=== PATIENT | female | born 1945 | race Caucasian/White ===

== ENCOUNTER → 2017-12-10 | Outpatient (CLI) | payer MEDICARE, OTHER ==
[~2017-12-10] MED LIST: ALBU90OI INH; AMOX1XR PO; ASPI81CH PO; Augmentin 875-1 EACH PO; BUDE6HFA INH; CARV6.25 PO; DILT120 PO; ESOMEPRAZOLE MA40 MG PO; HYDR1TAB94 PO; Imitrex100 MG PO; LEVFLO500 PO; PRED10; PREG150 PO; Pyridium200 MG PO; SOMA350 MG PO; VENL150ER PO; VENL75ER PO
== END ==
LOC: PLD 11:17 → LAB SHORT 11:17
DX: D48.5 Neoplasm of uncertain behavior of skin (principal)
CPT/HCPCS: 88305

== ENCOUNTER → 2018-12-24 | Outpatient (CLI) | payer MEDICARE, OTHER | END | disposition home or self-care (01) | LOC: PLD 11:05 → LAB SHORT 11:05 | DX: D22.5 Melanocytic nevi of trunk (principal) | CPT/HCPCS: 88305 ==

== ENCOUNTER 2019-06-23 14:00 | Emergency (ER) | payer MEDICARE, OTHER ==
[~2019-06-23] VITALS: Ht 154.9 cm; Wt 61.2 kg
[~2019-06-23 14:00] MED LIST changes: -HYDR1TAB94 PO; +Norco 10-325 T1 EACH PO
[2019-06-23 15:01] LABS: BASOPHILS ABSOLUTE AUTO 0.03 K/mm3 (0.00-0.23); BASOPHILS PERCENT AUTO 1 % (0-2); EOSINOPHILS ABSOLUTE AUTO 0.09 K/mm3 (0.00-0.68); EOSINOPHILS PERCENT AUTO 1 % (0-6); Hematocrit 37.2 % (33.0-51.0); Hemoglobin 12.1 g/dL (11.5-16.0); IMMATURE GRAN ABSOLUTE AUTO 0.04 K/mm3 (0.00-0.10); IMMATURE GRAN PERCENT AUTO 1 % (0-1); LYMPHOCYTES ABSOLUTE AUTO 1.58 K/mm3 (0.84-5.20); LYMPHOCYTES PERCENT AUTO 25 % (21-46); MONOCYTES ABSOLUTE AUTO 0.49 K/mm3 (0.16-1.47); MONOCYTES PERCENT AUTO 8 % (4-13); Mean Corpuscular HGB 32.7 pg (26.0-34.0); Mean Corpuscular HGB Conc 32.5 g/dL (31.5-36.5); Mean Corpuscular Volume 101 fL (80-100); Mean Platelet Volume 10.4 fL (9.1-12.4); NEUTROPHILS ABSOLUTE AUTO 4.03 K/mm3 (1.96-9.15); NEUTROPHILS PERCENT AUTO 65 % (41-73); Platelet Count 235 K/mm3 (150-400); RDW Coefficient Variation 14.5 % (11.7-14.2); RDW Standard Deviation 53.4 fL (35.1-46.3); White Blood Cell Count 6.26 K/mm3 (4.00-11.30)
[2019-06-23 15:14] LABS: Magnesium, Blood 2.5 mg/dL (1.6-2.4); Troponin I <0.015 ng/mL (0.000-0.040)
[2019-06-23 15:16] LABS: Alanine Aminotransfer (ALT/SGP 38 U/L (12-78); Albumin, Blood 3.9 g/dL (3.4-5.0); Albumin/Globulin Ratio 1.1 (0.8-1.8); Alk Phos 82 U/L (50-136); Anion Gap 7 mmol/L (6-16); Aspartate Aminotrans (AST/SGOT 28 U/L (12-37); Bilirubin, Total 0.3 mg/dL (0.1-1.0); Blood Urea Nitrogen 20 mg/dL (8-24); Bun/Creatinine Ratio 20.6 (12.0-20.0); CO2, Blood 23 mmol/L (21-32); Calcium, Blood 8.2 mg/dL (8.5-10.1); Chloride, Blood 104 mmol/L (98-108); Creatinine, Blood 0.97 mg/dL (0.40-1.00); Globulin, Blood 3.4 g/dL (2.2-4.0); Glomerular Filtration Rate >60 (60-); Glucose, Blood 106 mg/dL (70-99); Potassium, Blood 4.4 mmol/L (3.5-5.5); Sodium, Blood 134 mmol/L (136-145); Total Protein, Blood 7.3 g/dL (6.4-8.2)
[2019-06-23] MEDS ORDERED: SOMA350 MG PO (15:16)
[2019-06-23 16:20] LABS: International Normalized Ratio 0.96; Prothrombin Time Results 10.2 Sec (9.7-11.5)
== END 2019-06-23 18:58 | disposition short-term general hospital (02) ==
LOC: ER 14:00
PROVIDERS: Emergency Medicine
DX: S06.349A Traumatic hemorrhage of right cerebrum with loss of consciousness of unspecified duration, initial encounter (principal); S02.0XXA Fracture of vault of skull, initial encounter for closed fracture; S42.032A Displaced fracture of lateral end of left clavicle, initial encounter for closed fracture; Z88.7 Allergy status to serum and vaccine; Z88.5 Allergy status to narcotic agent; Z88.8 Allergy status to other drugs, medicaments and biological substances; Z79.899 Other long term (current) drug therapy; Z79.82 Long term (current) use of aspirin; Z79.52 Long term (current) use of systemic steroids; W01.10XA Fall on same level from slipping, tripping and stumbling with subsequent striking against unspecified object, initial encounter
CPT/HCPCS: 36415; 70450; 72125; 73030; 80053; 83735; 84484; 85025; 85610; 85730; 93005; 93010; 96374; 96375; 96376; 99285-25; J1170; J2405

== ENCOUNTER 2019-07-06 10:56 | Emergency (ER) | payer MEDICARE, OTHER ==
[~2019-07-06] VITALS: Ht 154.9 cm; Wt 57.6 kg
[2019-07-06] MEDS ORDERED: ESOMEPRAZOLE MA40 MG PO (11:13)
[2019-07-06] MEDS ORDERED: MELA3 PO (11:15)
[2019-07-06] MEDS ORDERED: ESOM20 PO (11:15)
[2019-07-06] MEDS ORDERED: Carvedilol25 MG PO (11:16)
[2019-07-06] MEDS ORDERED: Transderm-Scop1 EACH TD (11:16)
== END 2019-07-06 11:58 | disposition home or self-care (01) ==
LOC: ER 10:56
DX: M96.840 Postprocedural hematoma of a musculoskeletal structure following a musculoskeletal system procedure (principal); Z88.7 Allergy status to serum and vaccine; Z88.5 Allergy status to narcotic agent; Z88.8 Allergy status to other drugs, medicaments and biological substances; Z79.899 Other long term (current) drug therapy
CPT/HCPCS: 73000; 99283-25

== ENCOUNTER → 2021-08-17 | Outpatient (CLI) | payer MEDICARE, OTHER ==
[~2021-08-17] MED LIST changes: +Carvedilol25 MG PO; +ESOM20 PO; +MELA3 PO; +Transderm-Scop1 EACH TD
[2021-08-17 15:45] LABS: Source, Urine Clean Catch
[2021-08-17 15:56] LABS: Bacteria Mod /hpf; Squamous Epithelial Cells Few /hpf (Few)
[2021-08-17 15:57] LABS: Amorphous Mod (0-Heavy)
[2021-08-17 16:03] LABS: BASOPHILS ABSOLUTE AUTO 0.03 K/mm3 (0.00-0.23); BASOPHILS PERCENT AUTO 1 % (0-2); Hematocrit 39.3 % (33.0-51.0); Hemoglobin 13.3 g/dL (11.5-16.0); LYMPHOCYTES ABSOLUTE AUTO 0.97 K/mm3 (0.84-5.20); LYMPHOCYTES PERCENT AUTO 22 % (21-46); MONOCYTES ABSOLUTE AUTO 0.67 K/mm3 (0.16-1.47); MONOCYTES PERCENT AUTO 15 % (4-13); Mean Corpuscular HGB 32.7 pg (26.0-34.0); Mean Corpuscular HGB Conc 33.8 g/dL (31.5-36.5); Mean Corpuscular Volume 97 fL (80-100); Mean Platelet Volume 10.4 fL (9.1-12.4); Platelet Count 165 K/mm3 (150-400); RDW Coefficient Variation 13.3 % (11.7-14.2); RDW Standard Deviation 47.8 fL (35.1-46.3); Red Blood Cell Count 4.07 M/mm3 (3.80-5.20); White Blood Cell Count 4.51 K/mm3 (4.00-11.30)
[2021-08-17 16:12] LABS: EOSINOPHILS ABSOLUTE AUTO 0.04 K/mm3 (0.00-0.68); EOSINOPHILS PERCENT AUTO 1 % (0-6); IMMATURE GRAN ABSOLUTE AUTO 0.01 K/mm3 (0.00-0.10); IMMATURE GRAN PERCENT AUTO 0 % (0-1); NEUTROPHILS ABSOLUTE AUTO 2.79 K/mm3 (1.96-9.15); NEUTROPHILS PERCENT AUTO 62 % (41-73)
[2021-08-17 16:36] LABS: Anion Gap 12 mmol/L (6-16); Blood Urea Nitrogen 12 mg/dL (8-24); Bun/Creatinine Ratio 14.3 (12.0-20.0); CO2, Blood 25 mmol/L (21-32); Calcium, Blood 8.5 mg/dL (8.5-10.1); Chloride, Blood 100 mmol/L (98-108); Creatinine, Blood 0.84 mg/dL (0.40-1.00); Glomerular Filtration Rate >60 (60-); Glucose, Blood 93 mg/dL (70-99); Potassium, Blood 3.5 mmol/L (3.5-5.5); Sodium, Blood 137 mmol/L (136-145)
[2021-08-17 16:57] LABS: BAND PERCENT MAN 27 % (0-8); BASOPHILS PERCENT MAN 0 % (0-2); EOSINOPHILS PERCENT MAN 0 % (0-6); LYMPHOCYTES ABSOLUTE MAN 1.21 K/mm3 (0.84-5.20); LYMPHOCYTES PERCENT MAN 27 % (21-46); MONOCYTES PERCENT MAN 9 % (4-13); NEUTROPHILS ABSOLUTE MAN 2.88 K/mm3 (1.96-9.15); SEG NEUTROPHILS PERCENT MAN 37 % (41-73); TOTAL CELLS COUNTED 100
[2021-08-19 17:05] LABS: CORONAVIRUS (COVID19) CSH-NRL Negative (Negative)
== END | disposition home or self-care (01) ==
LOC: LAB SHORT 15:43 → LAB 15:43
PROVIDERS: Physician Assistant Medical
DX: N39.0 Urinary tract infection, site not specified (principal); R10.84 Generalized abdominal pain; Z20.822 Contact with and (suspected) exposure to COVID-19
CPT/HCPCS: 80048; 81015; 85025; 87086; U0003

== ENCOUNTER → 2021-08-21 | Outpatient (CLI) | payer MEDICARE, OTHER ==
[2021-08-21 19:51] LABS: Adenovirus F 40/41 Not Detected (NOT DETECT); Astrovirus Not Detected (NOT DETECT); Campylobacter Sp Not Detected (NOT DETECT); Cryptosporidium Not Detected (NOT DETECT); Cyclospora Cayetanensis Not Detected (NOT DETECT); E. Coli O157 Not Detected (NOT DETECT); Entamoeba Histolytica Not Detected (NOT DETECT); Enteroaggregative E. coli-EAEC Not Detected (NOT DETECT); Enteropathogenic E. coli-EPEC Not Detected (NOT DETECT); Enterotoxigenic E. coli-ETEC Not Detected (NOT DETECT); Giardia Lamblia Not Detected (NOT DETECT); Norovirus GI/GII Not Detected (NOT DETECT); Plesiomonas Shigelloides Not Detected (NOT DETECT); Rotavirus A Not Detected (NOT DETECT); Salmonella Sp Detected (NOT DETECT); Sapovirus Not Detected (NOT DETECT); Shiga Toxin-prod E. coli-STEC Not Detected (NOT DETECT); Shigella/Enteroin E. coli-EIEC Not Detected (NOT DETECT); Vibrio Cholerae Not Detected (NOT DETECT); Vibrio Sp Not Detected (NOT DETECT); Yersinia Enterocolitica Not Detected (NOT DETECT)
== END | disposition home or self-care (01) ==
LOC: LAB 15:14 → LAB SHORT 15:14
PROVIDERS: Physician Assistant Medical
DX: R19.7 Diarrhea, unspecified (principal)
CPT/HCPCS: 0097U

== ENCOUNTER → 2022-11-13 | Outpatient (CLI) | payer OTHER | END | disposition home or self-care (01) | LOC: PLD 12:17 → LAB SHORT 12:17 | DX: M20.12 Hallux valgus (acquired), left foot (principal); M20.42 Other hammer toe(s) (acquired), left foot; M20.5X2 Other deformities of toe(s) (acquired), left foot; M79.672 Pain in left foot | CPT/HCPCS: 88305 ==

== ENCOUNTER → 2024-07-11 | Outpatient (CLI) | payer OTHER ==
[2024-07-11 12:06] LABS: Stool Occult Blood Guaiac 1 Neg (Neg)
== END ==
LOC: LAB SHORT 09:46 → LAB 09:46
PROVIDERS: Physician Assistant
DX: D64.9 Anemia, unspecified (principal)
CPT/HCPCS: 82270

== ENCOUNTER 2024-10-15 20:17 | Emergency (ER) | payer OTHER ==
[~2024-10-15] VITALS: Ht 154.9 cm; Wt 63.5 kg
[2024-10-15] MEDS ORDERED: Ondansetron HCl 2 MG / ML 2ML Vial IV ONE (20:45)
[2024-10-15] MEDS ORDERED: Morphine Sulfate 4 MG/1 ML Injection IV ONE (20:45)
[2024-10-15 21:00] VITALS: BP 115/60
[2024-10-15] MEDS ORDERED: HYDROCODONE-AC1 EA10 PO (21:40)
[2024-10-16] MEDS ORDERED: CALC.25 PO (16:29)
[2024-10-16] MEDS ORDERED: PRED5 PO (16:29)
[2024-10-16] MEDS ORDERED: ASPIR 8181 M1 PO (16:29)
[2024-10-16] MEDS ORDERED: CARV25 PO (16:29)
[2024-10-16] MEDS ORDERED: LOSARTAN POTASS25 MG PO (16:30)
[2024-10-16] MEDS ORDERED: VENL75ER PO (16:30)
[2024-10-16] MEDS ORDERED: ABILIFY MYCITE2 M2 PO (16:31)
[2024-10-16] MEDS ORDERED: PREG300 PO (16:31)
[2024-10-16] MEDS ORDERED: Nexium40 MG PO (16:31)
[2024-10-16] MEDS ORDERED: ATOR40TA PO (16:31)
[2024-10-16] MEDS ORDERED: TIZA4 PO (16:32)
[2024-10-16] MEDS ORDERED: HUMIRA(CF)40 MG/0.4 SC (16:44)
== END 2024-10-15 22:15 | disposition home or self-care (01) ==
LOC: ER 20:17
DX: S42.212A Unspecified displaced fracture of surgical neck of left humerus, initial encounter for closed fracture (principal); W18.39XA Other fall on same level, initial encounter; I10 Essential (primary) hypertension; J45.998 Other asthma; M05.79 Rheumatoid arthritis with rheumatoid factor of multiple sites without organ or systems involvement; Z88.7 Allergy status to serum and vaccine; Z88.5 Allergy status to narcotic agent; Z88.8 Allergy status to other drugs, medicaments and biological substances; Z79.899 Other long term (current) drug therapy; Z92.25 Personal history of immunosuppression therapy
CPT/HCPCS: 36415; 73030; 80076; 82565; 85025; 85651; 86140; 96374; 96375; 99284-25; J2270; J2405

== ENCOUNTER 2024-10-16 14:34 | Inpatient (IN) | payer OTHER ==
[2024-10-16] VITALS (17 sets, daily range): BP systolic 81–104; BP diastolic 33–74
[~2024-10-16] VITALS: Ht 154.9 cm; Wt 67.5 kg
[~2024-10-16 14:34] MED LIST changes: +HYDROCODONE-AC1 EA10 PO
[2024-10-16] MEDS ORDERED: Ketamine HCl 100 MG / ML 5ML Vial IV ONE (14:41)
[2024-10-16 14:55] LABS: Base Excess Venous -6.9 mmol/L; Bicarbonate Venous 19.5 mmol/L (24.0-30.0); PCO2 Venous 33.2 mmHg (38-42); pH Blood Venous 7.36 (7.34-7.37)
[2024-10-16 14:56] LABS: Mean Corpuscular HGB 32.8 pg (26.0-34.0); Mean Corpuscular HGB Conc 31.4 g/dL (31.5-36.5); Mean Corpuscular Volume 105 fL (80-100); Platelet Count 144 K/mm3 (150-400); RDW Coefficient Variation 13.5 % (11.7-14.2); RDW Standard Deviation 52.1 fL (35.1-46.3); Red Blood Cell Count 3.35 M/mm3 (3.80-5.20); White Blood Cell Count 3.45 K/mm3 (4.00-11.30)
[2024-10-16] MEDS ORDERED: NS 1,000 ML IV ONE ×2 (14:57→15:20)
[2024-10-16] MEDS ORDERED: NS 1,000 ML IV SCH (15:00)
[2024-10-16 15:05] LABS: Calcium, Ionized (POC) 0.92 mmol/L (1.10-1.46); Chloride (POC) 107 mmol/L (98-108); Creatinine (POC) 1.3 mg/dL (0.6-1.0); Glucose (ISTAT POC) 94 mg/dL (70-99); Hemoglobin (POC) 12.2 g/dL (12.0-16.0); Potassium (POC) 3.5 mmol/L (3.5-5.5); Sodium (POC) 137 mmol/L (135-148); Total CO2 (POC) 20 mmol/L (21-32)
[2024-10-16 15:23] LABS: BAND PERCENT MAN 34 % (0-8); BASOPHILS PERCENT MAN 0 % (0-2); EOSINOPHILS ABSOLUTE MAN 0.06 K/mm3 (0.00-0.68); EOSINOPHILS PERCENT MAN 2 % (0-6); Ethanol (Alcohol), Blood, Med <3 mg/dL; LYMPHOCYTES ABSOLUTE MAN 1.06 K/mm3 (0.84-5.20); LYMPHOCYTES PERCENT MAN 31 % (21-46); METAMYELOCYTE ABSOLUTE MAN 0.06 K/mm3 (0.00-0.00); METAMYELOCYTE PERCENT MAN 2 % (0-0); MONOCYTES ABSOLUTE MAN 0.06 K/mm3 (0.16-1.47); MONOCYTES PERCENT MAN 2 % (4-13); Magnesium, Blood 2.3 mg/dL (1.6-2.4); NEUTROPHILS ABSOLUTE MAN 2.17 K/mm3 (1.96-9.15); SEG NEUTROPHILS PERCENT MAN 29 % (41-73); TOTAL CELLS COUNTED 100
[2024-10-16 15:26] LABS: Alanine Aminotransfer (ALT/SGP 14 U/L (12-78); Albumin, Blood 2.7 g/dL (3.4-5.0); Alk Phos 39 U/L (50-136); Anion Gap 14 mmol/L (3-11); Aspartate Aminotrans (AST/SGOT 15 U/L (12-37); Bilirubin, Total 0.3 mg/dL (0.1-1.0); Blood Urea Nitrogen 35 mg/dL (8-24); CO2, Blood 22 mmol/L (21-32); Calcium, Blood 7.5 mg/dL (8.5-10.1); Chloride, Blood 108 mmol/L (98-108); Creatinine, Blood 1.25 mg/dL (0.40-1.00); Globulin, Blood 2.6 g/dL (2.2-4.0); Glomerular Filtration Rate 44 (60-); Glucose, Blood 100 mg/dL (70-99); Potassium, Blood 3.5 mmol/L (3.5-5.5); Sodium, Blood 140 mmol/L (136-145); Total Protein, Blood 5.3 g/dL (6.4-8.2)
[2024-10-16 15:31] LABS: U Opiates Screen DETECTED
[2024-10-16 15:32] LABS: U Amphetamine Screen Not Detected; U Barbituate Screen Not Detected; U Benzodiazapine Screen Not Detected; U Buprenorphine Screen Not Detected; U Cannabinoids Screen Not Detected; U Cocaine Screen Not Detected; U Methadone Screen Not Detected; U Methamphetamine Screen Not Detected; U Oxycodone Screen Not Detected; U Phencyclidine Screen Not Detected
[2024-10-16] MEDS ORDERED: ASPIR 8181 M1 PO (16:29)
[2024-10-16] MEDS ORDERED: CALC.25 PO (16:29)
[2024-10-16] MEDS ORDERED: CARV25 PO (16:29)
[2024-10-16] MEDS ORDERED: PRED5 PO (16:29)
[2024-10-16] MEDS ORDERED: LOSARTAN POTASS25 MG PO (16:30)
[2024-10-16] MEDS ORDERED: FentaNYL Citrate 50 MCG/ML 2 ML Injection IV PRN (16:30)
[2024-10-16] MEDS ORDERED: VENL75ER PO (16:30)
[2024-10-16] MEDS ORDERED: ABILIFY MYCITE2 M2 PO (16:31)
[2024-10-16] MEDS ORDERED: ATOR40TA PO (16:31)
[2024-10-16] MEDS ORDERED: Nexium40 MG PO (16:31)
[2024-10-16] MEDS ORDERED: PREG300 PO (16:31)
[2024-10-16] MEDS ORDERED: TIZA4 PO (16:32)
[2024-10-16] MEDS ORDERED: FLU VACC TS2024-25(6MOS UP)/PF 45 MCG/0.5 ML SYRINGE IM SCH (16:40)
[2024-10-16] MEDS ORDERED: Ondansetron HCl 2 MG / ML 2ML Vial IV PRN (16:40)
[2024-10-16] MEDS ORDERED: Cetylpyridinium Chloride 1 EA MISC MT SCH (16:40)
[2024-10-16] MEDS ORDERED: HUMIRA(CF)40 MG/0.4 SC (16:44)
[2024-10-16] MEDS ORDERED: Midazolam HCL 100 MG in NS 80 ML IV PRN (16:50)
[2024-10-16] MEDS ORDERED: Enoxaparin 40 MG/0.4 ML SYR SC SCH (17:00)
[2024-10-16] MEDS ORDERED: Ampicillin Sod/Sulbactam Sod 3 GM in NS 100 ML IV SCH (17:00)
[2024-10-16 17:39] LABS: Influenza A, PCR NEGATIVE (NEGATIVE); Influenza B, PCR NEGATIVE (NEGATIVE); Resp Syncytial Virus, PCR NEGATIVE (NEGATIVE); SARS-Cov-2 (COVID-19) PCR, MMC NEGATIVE (NEGATIVE)
[2024-10-16] MEDS ORDERED: CALCIUM GLUC IN NACL, ISO-OSM 50 ML IV ONE (18:30)
[2024-10-16] MEDS ORDERED: Potassium Chloride 40 MEQ in NS 250 ML IV SCH (19:30)
[2024-10-16 19:40] LABS: Base Excess Venous -6.2 mmol/L; Bicarbonate Venous 18.8 mmol/L (24.0-30.0); PCO2 Venous 48.3 mmHg (38-42); pH Blood Venous 7.25 (7.34-7.37)
[2024-10-16] MEDS ORDERED: propofoL 100 ML IV SCH (19:40)
[2024-10-16 20:07] LABS: PCO2 Arterial 44.5 mmHg (35-45); PO2 Arterial 57.6 mmHg (80-100)
[2024-10-16 20:08] LABS: pH Blood Arterial 7.27 (7.35-7.45)
[2024-10-16] MEDS ORDERED: NS 500 ML IV ONE (20:30)
[2024-10-16] MEDS ORDERED: NS 500 ML IV SCH (20:30)
[2024-10-16] MEDS ORDERED: Vancomycin HCL 1,500 MG in NS 250 ML IV ONE (21:00)
[2024-10-16] MEDS ORDERED: Rocuronium Bromide 10 MG/ML 5ML Injection IV ONE (21:30)
[2024-10-16] MEDS ORDERED: Cisatracurium Besylate 100 MG in NS 50 ML IV SCH (22:00)
[2024-10-16] MEDS ORDERED: Acetaminophen 160MG / 5ML 10.15 UDC PT PRN (22:35)
[2024-10-16] MEDS ORDERED: fentaNYL citrate 1,000 MCG in NS 80 ML IV SCH (22:35)
[2024-10-16 22:39] LABS: Base Excess Venous -7.2 mmol/L; Bicarbonate Venous 18.4 mmol/L (24.0-30.0); pH Blood Venous 7.23 (7.34-7.37)
[2024-10-16] MEDS ORDERED: Lactated Ringer's 500 ML IV SCH (23:15)
[2024-10-16] MEDS ORDERED: Vasopressin 20 UNITS in NS 100 ML IV SCH (23:20)
[2024-10-17] VITALS (73 sets, daily range): BP systolic 61–149; BP diastolic 26–123
[2024-10-17] MEDS ORDERED: Hydrogen Peroxide 1.5 % Solution MT SCH
[2024-10-17] MEDS ORDERED: Artificial Tear Opth Oint 3.5 GM BOTHEYES PRN (01:30)
[2024-10-17] MEDS ORDERED: Phenylephrine HCl in 0.9% NaCl 250 ML IV SCH (02:40)
[2024-10-17 03:24] LABS: Base Excess Venous -10.9 mmol/L; Bicarbonate Venous 16.3 mmol/L (24.0-30.0); PCO2 Venous 33.9 mmHg (38-42); pH Blood Venous 7.28 (7.34-7.37)
[2024-10-17 03:30] LABS: Hematocrit 35.6 % (33.0-51.0); Mean Corpuscular HGB 32.8 pg (26.0-34.0); Mean Corpuscular HGB Conc 30.9 g/dL (31.5-36.5); Mean Corpuscular Volume 106 fL (80-100); Mean Platelet Volume 10.3 fL (9.1-12.4); NRBC ABSOLUTE 0.02 K/mm3 (0.00-0.02); NRBC Auto 0.7 /100 WBC (0.0-0.2); Platelet Count 169 K/mm3 (150-400); RDW Coefficient Variation 13.5 % (11.7-14.2); RDW Standard Deviation 52.8 fL (35.1-46.3); Red Blood Cell Count 3.35 M/mm3 (3.80-5.20); White Blood Cell Count 3.07 K/mm3 (4.00-11.30)
[2024-10-17 03:49] LABS: Magnesium, Blood 1.8 mg/dL (1.6-2.4)
[2024-10-17 03:50] LABS: Albumin, Blood 2.1 g/dL (3.4-5.0); Albumin/Globulin Ratio 0.9 (0.8-1.8); Bilirubin, Total 0.2 mg/dL (0.1-1.0); Bun/Creatinine Ratio 27.3 (12.0-20.0); Creatinine, Blood 1.1 mg/dL (0.40-1.00); Globulin, Blood 2.4 g/dL (2.2-4.0); Phosphorus, Blood 2.5 mg/dL (2.5-4.9); Potassium, Blood 3.5 mmol/L (3.5-5.5); Total Protein, Blood 4.5 g/dL (6.4-8.2)
[2024-10-17 04:08] LABS: BAND PERCENT MAN 33 % (0-8); BASOPHILS ABSOLUTE MAN 0.03 K/mm3 (0.00-0.23); BASOPHILS PERCENT MAN 1 % (0-2); EOSINOPHILS ABSOLUTE MAN 0.03 K/mm3 (0.00-0.68); EOSINOPHILS PERCENT MAN 1 % (0-6); LYMPHOCYTES ABSOLUTE MAN 0.39 K/mm3 (0.84-5.20); LYMPHOCYTES PERCENT MAN 13 % (21-46); METAMYELOCYTE ABSOLUTE MAN 0.36 K/mm3 (0.00-0.00); METAMYELOCYTE PERCENT MAN 12 % (0-0); MONOCYTES ABSOLUTE MAN 0.09 K/mm3 (0.16-1.47); MONOCYTES PERCENT MAN 3 % (4-13); MYELOCYTE ABSOLUTE MAN 0.09 K/mm3 (0.00-0.00); MYELOCYTE PERCENT MAN 3 % (0-0); NEUTROPHILS ABSOLUTE MAN 2.05 K/mm3 (1.96-9.15); SEG NEUTROPHILS PERCENT MAN 34 % (41-73); TOTAL CELLS COUNTED 100
--- NOTE | 2024-10-17 05:39 | NUR ---
SHIFT SUMMARY: PT IS INTUBATED AND IN PRONED POSITION. THROUGHOUT THE SHIFT WE HAD ISSUES MAINTAINING AN ADEQUATED BLOOD PRESSURE DESPITE MULTIPLE PRESSORS AND FLUID RESUCITATION. SHE HAD ISSUES WITH OXYGENATION PRIOR TO PRONING WELL. PT IS PARALYZED AND SEDATED WITH PROPOFOL AND VERSED AND ON A FENTANYL GTT WITH RIS MONITORING. SHE HAS A FRACTURED LEFT HUMERUS THAT WAS IN A SLING UPON ARRIVAL. BRUISING OVER THE AREA NOTED. SHE HAS A SQUIRES CATHETER IN PLACE DRAINING TO GRAVITY WITH ADEQUATE URINE OUTPUT. PT HAS A CENTRAL LINE AND 2 PERIPHERAL LINE. ART LINE WAS ATTEMPTED AT RADIAL AND FEMORAL SITE AT THE BEGINNING OF SHIFT WITHOUT SUCCESS. SOME BRUISING TO THOSE SITES. HER CAREGIVER HAS BEEN AT BEDSIDE THROUGHOUT SHIFT PATIENT'S WENT HOME ON HOSPICE YESTERDAY, CAREGIVER IS THE MAIN POINT OF CONTACT FOR THE PATIENT AT THIS TIME.
[2024-10-17] MEDS ORDERED: Pantoprazole Sodium 40 MG Injection IV SCH (06:00)
[2024-10-17] MEDS ORDERED: Potassium Chloride 20 MEQ/15 ML UDC PO ONE (08:30)
[2024-10-17] MEDS ORDERED: Meropenem 2,000 MG in NS 250 ML IV SCH (11:00)
[2024-10-17] MEDS ORDERED: Magnesium Hydroxide Conc 10 ML UDC PT PRN (11:45)
[2024-10-17] MEDS ORDERED: Bisacodyl 10 MG Supp PR PRN (11:45)
[2024-10-17] MEDS ORDERED: Docusate Sodium Liquid 100 MG UDC PT PRN (11:45)
[2024-10-17] MEDS ORDERED: Ampicillin Sod/Sulbactam Sod 3 GM in NS 100 ML IV SCH (12:00)
--- NOTE | 2024-10-17 15:05 | NUR ---
POLST FORM OBTAINED FROM [facility]. PT LISTED CPR, FULL TREATMENT-NO FEEDING TUBE UNLESS SPECIFIED BY PATIENT. COPY SENT TO POLST REGISTRY AND PLACED ON CHART.
--- NOTE | 2024-10-17 16:58 | NUR ---
INITIAL VISIT: MET WITH FRIEND HUGO AT BEDSIDE. PT IS ON VENTILATOR AND UNRESPONSIVE. HUGO REPORTED SHE LIVES ON PROPERTY AND WAS ASSISTING KAREEM WITH THE CARE OF HER WHO WAS RECENTLY PLACED ON HOSPICE SERVICES FOR DEMENTIA. WILLIAM HAD TRIPPED OVER SPOUSES WHEELCHAIR WHEEL THAT WAS STICKING OUT AT DINNER TABLE AND FELL AND BROKE HER ARM. KAREEM CAME TO ER AND WAS SENT HOME WITH PAIN MEDICATION. HUGO REPORTED SHE WAS UP IN THE MIDDLE OF THE NIGHT AND GOT A PAIN PILL THEN WENT BACK TO BED AND WAS UP AGAIN AROUND 10 AM YESTERDAY. SHE TOOK ANOTHER PAIN PILL AND ATE SOME TOAST BUT ENDED UP VOMITING UP THE TOAST. SHE WENT TO CHECK ON HER LATER IN THE DAY AND AND FOUND PT IN BED "GURGLING". WHEN MARBLE FINISHER ARRIVED TO VISIT SPOUSE OF PATIENT HE TOLD HUGO TO CALL 911. HUGO REPORTS PT HAS STEP SON JOSE RIZO WHO IS CURRENTLY WITH HIS DAD TAKING CARE OF HIM. SPOUSE PIPPA IS UNABLE TO MAKE DECISIONS DUE TO HIS ADVANCED DEMENTIA. ACCORDING TO HUGO PT HAS NO OTHER FAMILY WHO CAN MAKE DECISIONS FOR HER. HUGO STATED KAREEM WAS GOING TO MAKE HER POA SINCE HER WENT ON HOSPICE SERVICES. THEY HAD MEETING SET UP TODAY WITH LAW REPORTER TO SET UP POA. ACCORDING TO HUGO KAREEM HAD ALSO DESIGNATED A FRIEND NAMED TONY IN HER WILL TO INHERIT HER PROPERTY. HUGO GIVEN EMOTIONAL SUPPORT. ADVISED PALLIATIVE CARE WILL BE CHECKING ON PATIENT THROUGHOUT HER STAY AND TO CALL IF SHE HAS ANY QUESTIONS OR NEEDS. SPOKE TO SAMUEL IN CARE MANAGEMENT OF CONCERNS PT DOES NOT HAVE FAMILY MEMBER WHO CAN MAKE MEDICAL DECISIONS FOR PATIENT AT THIS TIME. UPDATED HER ON ABOVE SITUATION. SAMUEL DID ACCESS A POLST WHICH WAS SENT OVER VIA FAX. PLACED ON CHART.
--- NOTE | 2024-10-17 17:26 | NUR ---
SHIFT SUMMARY PT REMAINS INTUBATED. PT PRONE UNTIL 1400, THEN PLACED SUPINE. PT TOLERATED WELL. NIMBEX AND ALL SEDATION WEANED OFF THIS AFTERNOON. DR ENGLAND CHANGED VENT SETTINGS TO AC/VC 24, TV 350, PEEP 13, FIO2 45%. PT REMAINS NONRESPONSIVE TO NOXIOUS STIMULI. PT OCCASIONALLY CHEWS ON ETT. CENTRAL LINE TO RIJ C/D/I. LEVOPHED TITRATED DOWN THROUGHOUT THIS SHIFT. VASOPRESSIN INFUSING. SEE FLOWSHEET FOR TITRATIONS. OGT IN PLACE WITH TF STARTED AT 10 ML/HR GOAL RATE. SQUIRES TEMP PROBE REMAINS IN PLACE WITH YELLOW URINE OUTPUT NOTED. PT WITH MULTIPLE SOFT BM'S THIS SHIFT. VITAL SIGNS REMAINED STABLE. MULTIPLE FAMILY MEMBERS AT BEDSIDE THROUGHOUT THE SHIFT. SKIN CONDITION REMAINS THE SAME. SKIN TEARS TO CHEECKS BETTER VISUALIZED AND PHOTOGRAPHED AFTER PT SUPINATED. WILL CONTINUE TO MONITOR AND REPORT OFF TO ONCOMING RN.
[2024-10-17 17:29] LABS: Base Excess Venous -9.9 mmol/L; Bicarbonate Venous 17.1 mmol/L (24.0-30.0); PCO2 Venous 36.5 mmHg (38-42); pH Blood Venous 7.27 (7.34-7.37)
[2024-10-17] MEDS ORDERED: Vancomycin HCL 1,000 MG in NS 250 ML IV SCH (21:00)
[2024-10-17] MEDS ORDERED: Lactobacil 2-S.Thermo-Bifido 1 1 Cap PT SCH (21:00)
[2024-10-18] VITALS (100 sets, daily range): BP systolic 75–172; BP diastolic 24–151
[2024-10-18 03:41] LABS: Hematocrit 35.5 % (33.0-51.0); Hemoglobin 11.5 g/dL (11.5-16.0); Mean Corpuscular HGB 32.8 pg (26.0-34.0); Mean Corpuscular HGB Conc 32.4 g/dL (31.5-36.5); Mean Platelet Volume 10.8 fL (9.1-12.4); Platelet Count 118 K/mm3 (150-400); RDW Coefficient Variation 13.8 % (11.7-14.2); RDW Standard Deviation 51.2 fL (35.1-46.3); Red Blood Cell Count 3.51 M/mm3 (3.80-5.20); White Blood Cell Count 4.74 K/mm3 (4.00-11.30)
[2024-10-18 03:48] LABS: Mean Corpuscular Volume 101 fL (80-100)
[2024-10-18 04:00] LABS: BAND PERCENT MAN 28 % (0-8); BASOPHILS PERCENT MAN 0 % (0-2); Bun/Creatinine Ratio 23.6 (12.0-20.0); Calcium, Blood 7.7 mg/dL (8.5-10.1); Creatinine, Blood 0.93 mg/dL (0.40-1.00); EOSINOPHILS ABSOLUTE MAN 0.14 K/mm3 (0.00-0.68); EOSINOPHILS PERCENT MAN 3 % (0-6); LYMPHOCYTES ABSOLUTE MAN 0.61 K/mm3 (0.84-5.20); LYMPHOCYTES PERCENT MAN 13 % (21-46); METAMYELOCYTE ABSOLUTE MAN 0.09 K/mm3 (0.00-0.00); METAMYELOCYTE PERCENT MAN 2 % (0-0); MONOCYTES ABSOLUTE MAN 0.14 K/mm3 (0.16-1.47); MONOCYTES PERCENT MAN 3 % (4-13); MYELOCYTE ABSOLUTE MAN 0.04 K/mm3 (0.00-0.00); MYELOCYTE PERCENT MAN 1 % (0-0); Magnesium, Blood 1.9 mg/dL (1.6-2.4); NEUTROPHILS ABSOLUTE MAN 3.69 K/mm3 (1.96-9.15); Phosphorus, Blood 2.7 mg/dL (2.5-4.9); Potassium, Blood 3.8 mmol/L (3.5-5.5); SEG NEUTROPHILS PERCENT MAN 50 % (41-73); TOTAL CELLS COUNTED 100
[2024-10-18] MEDS ORDERED: Potassium Chl 20MEQ/Water100ML 100 ML IV SCH (05:00)
[2024-10-18] MEDS ORDERED: Mag Sulfate 1 GM/D5% 100ML 100 ML IV ONE (05:00)
[2024-10-18] MEDS ORDERED: Mag Sulfate 1 GM/D5% 100ML 100 ML IV STA (05:09)
[2024-10-18] MEDS ORDERED: Potassium Chloride 40 MEQ in NS 250 ML IV ONE (05:15)
[2024-10-18] MEDS ORDERED: CALCIUM GLUC IN NACL, ISO-OSM 50 ML IV ONE ×2 (06:00→06:10)
--- NOTE | 2024-10-18 06:40 | NUR ---
SHIFT SUMMARY NO ACUTE EVENTS, TMAX 100.1F, LEVOPHED TITRATED PER EMAR, VASOPRESSIN AT 0.04 UNITS/MIN, PROPOFOL TITRATED FOR RASS -2/-3, FENTANYL AND VERSED REMAINS ON STANDBY, PT HAD X4 INCONTINENT STOOLS THIS SHIFT, REMAINS INTUBATED AND SEDATED, FIO2 45%, HOB UP 45 DEGREES, SIDE RAILS UP X2, [place]AILASH WRIST RESTRAINTS IN PLACE
--- NOTE | 2024-10-18 07:00 | NUR ---
ASSUMPTION OF CARE PT RECEIVING PROPOFOL 20MCG/KG/MIN, LEVOPHED 12MCG/HR, AND VASOPRESSIN 0.04UNITS/KG/HR. SHE IS INTUBATED WITH VENT SETTINGS AC/VC 24/350/12/45%. RASS -3. VHP INFUSING VIA OGT. SINUS ON MONITOR WITH RATE IN 90S. TEMP SQUIRES PATENT AND DRAINING TO GRAVITY. CAREGIVER BEATRIZ AT BEDSIDE.
[2024-10-18] MEDS ORDERED: HYDROCORTISONE SOD SUCCINATE IV SCH (11:15)
[2024-10-18] MEDS ORDERED: NS IV SCH (11:15)
[2024-10-18] MEDS ORDERED: Hydrocortisone Sod Succinate 250 MG Vial IV SCH (12:00)
--- NOTE | 2024-10-18 16:15 | NUR ---
PALLIATIVE CARE VISIT: PT IS STILL ON VENTILATOR, NON RESPONSIVE. APPEARS TO BE IN NO APPARENT DISTRESS DURING VISIT. FRIEND HUGO IS PRESENT. GAVE HUGO ENCOURAGEMENT AND EMOTIONAL SUPPORT. ANSWERED HER QUESTIONS. HUGO REPORTS PROMOTIONAL REPRESENTATIVE FOR PATIENTS SPOUSE IS COMING IN DAILY TO CHECK NEEDS. STEP SON OF PATIENT CONTINUES TO BE IN HOME CARING FOR HIS FATHER. HUGO DENIES ANY CONCERNS REGARDING HIS CARE. HUGO ENCOURAGED TO SELF CARE SHE STATES SHE IS SLEEPING AT HOSPITAL TO BE WITH KAREEM. SHE STATED SHE FELT DEHYDRATED YESTERDAY BUT NOW SHE KNOWS WHERE TO GET FOOD AND DRINKS. NATANAEL HILL REPORTED SHE WILL LEAVE FOR A FEW HOURS TONIGHT TO GO HOME AND SHOWER AND GO ON A OUTING WITH FRIENDS SHE ALREADY HAD PLANNED. ROUTE AIDE SAMUEL RESEARCHED NEXT OF KIN YESTERDAY AND NONE HAVE BEEN ABLE TO BE LOCATED AT THIS TIME.
--- NOTE | 2024-10-18 17:32 | NUR ---
SHIFT SUMMARY PT RECEIVING PROPOFOL 25MCG/KG/MIN, LEVOPHED 8MCG/MIN, VASOPRESSIN 0.04UNITS/KG/HR AND FENTANYL 25MCG/HR. SHE REMAINS INTUBATED WITH VENT SETTINGS AC/VC 24/350/10/45%. RASS -3. SINUS ON MONITOR WITH RATE IN 70S-90S. TUBE FEEDING INCREASED TO GOAL 25ML/HR. PT HAS HAD MULTIPLE BMS THIS SHIFT. TEMP SQUIRES PATENT AND DRAINING TO GRAVITY. CURRENT TEMP 99.7.
--- NOTE | 2024-10-18 19:40 | NUR ---
update assumed care of pt at 1900, at 1915 pt more alert, raising arm and pulling on restraints, moving ble up and down, noted pt appears to be gasping for air with abd accessory muscle use, spo2 decreased to 77%, RT called to room, fio2 increased to 100%, oral and inline suction performed with no secretions noted, propofol increased from 25 mcg/kg/min to 50 mcg/kg/min and fentanyl increased from 25 mcg/hr to 50 mcg/hr, vent changes made by RT FiO2 increased from 30% to 35%, tv increased from 300 to 350. spo2 increased to 98-100% and noted decreased respiratory effort and no longer gasping, no longer restless or pulling on restraints. rass -3 at this time
[2024-10-18] MEDS ORDERED: CefTRIAXone Sodium 1,000 MG in NS 100 ML IV SCH (21:00)
[2024-10-19] VITALS (95 sets, daily range): BP systolic 69–158; BP diastolic 42–97
[2024-10-19 03:40] LABS: Hematocrit 27.8 % (33.0-51.0); Hemoglobin 9.1 g/dL (11.5-16.0); Mean Corpuscular HGB Conc 32.7 g/dL (31.5-36.5); Mean Corpuscular Volume 101 fL (80-100); Mean Platelet Volume 11.5 fL (9.1-12.4); NRBC ABSOLUTE 0.02 K/mm3 (0.00-0.02); NRBC Auto 0.4 /100 WBC (0.0-0.2); Platelet Count 84 K/mm3 (150-400); RDW Coefficient Variation 13.8 % (11.7-14.2); Red Blood Cell Count 2.76 M/mm3 (3.80-5.20); White Blood Cell Count 5.42 K/mm3 (4.00-11.30)
[2024-10-19 04:00] LABS: Albumin, Blood 1.9 g/dL (3.4-5.0); Anion Gap 12 mmol/L (3-11); BAND PERCENT MAN 18 % (0-8); BASOPHILS PERCENT MAN 0 % (0-2); Blood Urea Nitrogen 14 mg/dL (8-24); Bun/Creatinine Ratio 21.1 (12.0-20.0); CO2, Blood 20 mmol/L (21-32); Calcium, Blood 7.8 mg/dL (8.5-10.1); Chloride, Blood 115 mmol/L (98-108); Creatinine, Blood 0.66 mg/dL (0.40-1.00); EOSINOPHILS PERCENT MAN 0 % (0-6); Glomerular Filtration Rate 90 (60-); Glucose, Blood 136 mg/dL (70-99); LYMPHOCYTES ABSOLUTE MAN 0.16 K/mm3 (0.84-5.20); LYMPHOCYTES PERCENT MAN 3 % (21-46); METAMYELOCYTE ABSOLUTE MAN 0.05 K/mm3 (0.00-0.00); METAMYELOCYTE PERCENT MAN 1 % (0-0); MONOCYTES ABSOLUTE MAN 0.16 K/mm3 (0.16-1.47); MONOCYTES PERCENT MAN 3 % (4-13); MYELOCYTE ABSOLUTE MAN 0.05 K/mm3 (0.00-0.00); MYELOCYTE PERCENT MAN 1 % (0-0); NEUTROPHILS ABSOLUTE MAN 4.98 K/mm3 (1.96-9.15); Phosphorus, Blood 1.8 mg/dL (2.5-4.9); Potassium, Blood 3.6 mmol/L (3.5-5.5); SEG NEUTROPHILS PERCENT MAN 74 % (41-73); Sodium, Blood 143 mmol/L (136-145); TOTAL CELLS COUNTED 100
--- NOTE | 2024-10-19 07:00 | NUR ---
ASSUMPTION OF CARE PT RECEIVING PROPOFOL 30MCG/KG/MIN, LEVOPHED 2 MCG/MIN, VASOPRESSIN 0.04UNITS/KG/HR, AND FENTANYL 50MCG/HR. SHE REMAINS INTUBATED WITH VENT SETTINGS AC/VC 28/350/10/35%. RASS -3. SINUS ON MONITOR WITH RATE IN 60S. TUBE FEEDING INFUSING AT GOAL RATE VIA OGT. TEMP SQUIRES PATENT AND DRAINING TO GRAVITY. CAREGIVER NATANAEL HILL AT BEDSIDE.
[2024-10-19] MEDS ORDERED: Multivitamins-Minerals Liquid 15 ML Oral Syringe PT SCH (09:00)
[2024-10-19] MEDS ORDERED: Sodium Phosphate 20 MM in Dextrose 5% 500 ML IV STA (09:43)
[2024-10-19] MEDS ORDERED: dexmedeTOMIDine 100 ML IV SCH (12:00)
--- NOTE | 2024-10-19 18:42 | NUR ---
SHIFT SUMMARY PT RECEIVING PROPOFOL 15MCG/KG/MIN, FENTANYL 25MCG/HR, PRECEDEX 1.0MCG/KG/HR, LEVOPHED 4MCG/MIN. SHE REMAINS INTUBATED WITH VENT SETTINGS AC/VC 24/340/10/45%. ATTEMPTED TO TITRATE SEDATION DOWN FOR SEDATION VACATION. PT BECAME TACHYPNEIC AND TACHYCARDIC. STARTED PRECEDEX THIS SHIFT. SINUS ON MONITOR WITH RATE IN 60S. TUBE FEEDING INFUSING AT GOAL RATE. PT HAD MULTIPLE BMS THIS SHIFT. TEMP SQUIRES PATENT AND DRAINING TO GRAVITY.
[2024-10-19 21:20] LABS: C DIFFICILE DNA NEGATIVE (Negative)
[2024-10-20] VITALS (78 sets, daily range): BP systolic 78–147; BP diastolic 47–95
[2024-10-20 03:52] LABS: Hematocrit 27.2 % (33.0-51.0); Hemoglobin 9.3 g/dL (11.5-16.0); Mean Corpuscular HGB 32.9 pg (26.0-34.0); Mean Corpuscular HGB Conc 34.2 g/dL (31.5-36.5); Mean Platelet Volume 11.1 fL (9.1-12.4); NRBC ABSOLUTE 0.05 K/mm3 (0.00-0.02); NRBC Auto 0.6 /100 WBC (0.0-0.2); Platelet Count 111 K/mm3 (150-400); RDW Coefficient Variation 13.6 % (11.7-14.2); RDW Standard Deviation 48.3 fL (35.1-46.3); Red Blood Cell Count 2.83 M/mm3 (3.80-5.20)
[2024-10-20 03:56] LABS: Mean Corpuscular Volume 96 fL (80-100)
[2024-10-20 04:09] LABS: Anion Gap 11 mmol/L (3-11); Blood Urea Nitrogen 17 mg/dL (8-24); Bun/Creatinine Ratio 26.6 (12.0-20.0); CO2, Blood 22 mmol/L (21-32); Calcium, Blood 7.9 mg/dL (8.5-10.1); Chloride, Blood 115 mmol/L (98-108); Creatinine, Blood 0.64 mg/dL (0.40-1.00); Glomerular Filtration Rate 91 (60-); Glucose, Blood 133 mg/dL (70-99); Phosphorus, Blood 1.3 mg/dL (2.5-4.9); Sodium, Blood 145 mmol/L (136-145)
[2024-10-20 04:48] LABS: BAND PERCENT MAN 21 % (0-8); BASOPHILS PERCENT MAN 0 % (0-2); EOSINOPHILS PERCENT MAN 0 % (0-6); LYMPHOCYTES ABSOLUTE MAN 0.17 K/mm3 (0.84-5.20); LYMPHOCYTES PERCENT MAN 2 % (21-46); MONOCYTES ABSOLUTE MAN 0.52 K/mm3 (0.16-1.47); MONOCYTES PERCENT MAN 6 % (4-13); NEUTROPHILS ABSOLUTE MAN 8.09 K/mm3 (1.96-9.15); SEG NEUTROPHILS PERCENT MAN 71 % (41-73); TOTAL CELLS COUNTED 100
[2024-10-20] MEDS ORDERED: Potassium Phosphate Dibasic 30 MM in Dextrose 5% 500 ML IV STA (05:15)
[2024-10-20] MEDS ORDERED: Potassium Phosphate Dibasic 30 MM IV ONE (05:15)
--- NOTE | 2024-10-20 05:37 | NUR ---
SHIFT SUMMARY PATIENT INTUBATED AND SEDATED. CAREGIVER NATANAEL HILL AT BEDSIDE THROUGH NIGHT. ET TUBE 7.5 22CM AT [facility]. VENT SETTINGS AC/VC 24/340/10/45%. PROPOFOL RUNNING @ 15, LEVO RUNNING @ 4, FENTANYL RUNNING 25MCG, AND PRECEDEX RUNNING @ 1. PATIENT HAS A RIJ AND A RIGHT WRIST 20G IV. PATIENT HAS SQUIRES WITH TEMP AND DRAINING TO GRAVITY. WRIST RESTRAINTS ON BILATERAL. TUBE FEEDING AT GOAL OF 25ML WITH A 30ML FLUSH Q4HRS. CALL LIGHT WITHIN REACH AND CAREGIVER KNOWS WHERE IT IS ALSO.
--- NOTE | 2024-10-20 07:15 | NUR ---
ASSUMPTION OF CARE: ASSUMED CARE OF PATIENT. PATIENT RESTING IN BED WITH HER CAREGIVER AT THE BEDSIDE. TUBE FEED INFUSING AT GOAL OF 25MLS/HR. PRECEDEX GTT AT 1 MCG/KG/HR. PROPOFOL AT 20 MCG/KG/HR. FENTANYL AT 25 MCG/HR. HYDROCORTISONE GTT INFUSING PER ORDERS. KPHOS REPLACEMENT INFUSING. SQUIRES IN PLACE AND DRAINING FREELY CLEAR YELLOW URINE. VENT SETTINGS AC/VC 24/340/10/40%. SPO2 >94%. HR IN THE 80S. MAPS >65. LEVOPHED AT 2 MCG/MIN.
--- NOTE | 2024-10-20 08:46 | NUR ---
Provider notification - Dr. Torres -- pt exhibiting increased work of breathing, decreased tidal volumes, stacking breaths, and pulling against restraints this AM per primary RN. Propofol titrated, fentanyl push administered. Pt appears more comfortable but breath stacking continues with every third breath receiving tidal volume 0. Pt currently on ACVC 40%, 10+. RT at bedside, changed settings to PS per Dr. Torres to achieve previously set tidal volume goal. PS 5, 40%, 10+, RR 17, even, non-labored respirations.
[2024-10-20] MEDS ORDERED: Potassium Chloride 20 MEQ/15 ML UDC PT ONE (11:00)
--- NOTE | 2024-10-20 11:25 | NUR ---
SEDATION INTERRUPTION: SEDATION STOPPED AT 11:07. PATIENT BECAME INCREASINGLY AGITATED: PULLING AT RESTRAINTS, LIFTING SHOULDERS OFF OF THE BED, AND SHAKING HEAD BACK AND FORTH. PATIENT DID NOT RESPOND TO REDIRECTION, REASSURANCE OR COMMANDS. PATIENT MOVING ALL 4 LIMBS INDEPENDENTLY. PATIENT DID NOT WITHDRAW OR LOCALIZE TO PAINFUL STIMULI (NAIL BED PRESSURE OR TRAPEZIUS SQUEEZE). CAREGIVER AND STEP SON AT BEDSIDE DURING THIS PROCESS. SEDATION INTERRUPTION STOPPED AT 11:25 DUE TO INCREASING AGITATION.
[2024-10-20] MEDS ORDERED: Tranexamic Acid 1000 MG/10 ML 10ML Vial (SDV) INH SCH (13:00)
--- NOTE | 2024-10-20 13:37 | NUR ---
SPONTANEOUS BREATHING TRIAL: LATE ENTRY: SBT STARTED AT 0848 THIS MORNING. PATIENT HAD BEEN DOUBLE STACKING. DONYA RT NOTIFIED AND AT BEDSIDE. PER DR. JERNIGAN ORDERS, PATIENT PLACED ON SPONTANEOUS WITH PS OF 5, FIO2 40%. PATIENT TOLERATED WELL WITH RR 18-24. VOLUMES IN THE 400-500S. SPOW >94%. NEAR THE END OF THE TRIAL, RR INCREASED TO THE LOW 30S AND PATIENT APPEARED TO HAVE AN INCREASED WORK OF BREATHING. TRIAL STOPPED AT 1337. CAREGIVER AT BEDSIDE THROUGHOUT.
[2024-10-20] MEDS ORDERED: FentaNYL Citrate 50 MCG/ML 2 ML Injection IV PRN (13:40)
[2024-10-20] MEDS ORDERED: Banana Flakes/Tos 1 EA Powder Pack PT SCH (14:00)
--- NOTE | 2024-10-20 18:44 | NUR ---
SHIFT SUMMARY: NEURO: PATIENT DID NOT FOLLOW DIRECTIONS OR RESPOND VERBAL OR PAINFUL STIMULI DURING THE SHIFT, EVEN DURING SEDATION INTERRUPTION (SEE NURSE'S NOTE). DURING SEDATION INTERRUPTION, PATIENT MOVING ALL FOUR LIMBS INDEPENDENTLY. PRECEDEX AT 1 MCG/KG/HR AND PROPOFOL AT 20 MCG/KG/MIN AT THE END OF SHIFT. RESPIRATORY: DURING THE MORNING, PATIENT INCREASINGLY INTOLERANT OF THE VENT, RESULTING IN DOUBLE STACKING. THIS WAS NOT ALLEVIATED WITH TITRATION OF SEDATION OR PAIN MEDICATION. PATIENT TRANSITIONED TO SBT, WHICH SHE TOLERATED WELL FROM 08:50-13:40. STARTING AT THE END OF THE TRIAL TO WHEN TRANSITIONED BACK TO AC/VC, PATIENT'S RR IN THE LOW 30S, PATIENT APPEARED TO BE EXPERIENCING VENT INTOLERANCE, UNRELIEVED WITH PRN PAIN MEDICATIONS OR SEDATION TITRATIONS. PER DR. JERNIGAN, PATIENT TRANSITIONED TO PRESSURE CONTROL (12/6/40%). ELE BLOODY SECRETIONS WITH SUCTIONING. PATIENT RECEIVING TXA NEBULIZER TREATMENTS. HYDROCORTISONE GTT CONTINUES PER ORDERS. CARDIAC: LEVOPHED ON STANDBY THIS AM. BP'S STABLE WITH MAPS >65. DEPENDING ON THE PATIENT'S DISCOMFORT, HR IN THE 80S-100S. LATER IN THE EVENING, PATIENT HAD SOME SHORT EPISODES OF BRADYCARDIA WITH THE LOWEST HR IN THE 40S. PATIENT RECOVERED AND SPENT THE REST OF THE EVENING IN THE 70S. PALPABLE PEDIS PULSES. GI/: SQUIRES IN PLACE AND DRAINING CLEAR YELLOW URINE. NO FOUL ODOR NOTED. FREQUENCY OF BOWEL MOVEMENTS DECREASED. THEY CONTINUE TO BE UNFORMED BROWN/YELLOW STOOLS. BANATROL STARTED. PSYCHSOCIAL: PATIENT'S CAREGIVERS AND STEP SONS AT THE BED SIDE THROUGHOUT THE DAY. THEY ARE SUPPORTIVE OF THE PATIENT AND APPRECIATIVE OF THE STAFF.
[2024-10-21] VITALS (72 sets, daily range): BP systolic 97–160; BP diastolic 59–110
[2024-10-21 04:10] LABS: Hematocrit 24.6 % (33.0-51.0); Hemoglobin 8.2 g/dL (11.5-16.0); Mean Corpuscular HGB 32.4 pg (26.0-34.0); Mean Corpuscular HGB Conc 33.3 g/dL (31.5-36.5); Mean Corpuscular Volume 97 fL (80-100); Mean Platelet Volume 11.3 fL (9.1-12.4); NRBC ABSOLUTE 0.08 K/mm3 (0.00-0.02); NRBC Auto 1.1 /100 WBC (0.0-0.2); Platelet Count 79 K/mm3 (150-400); RDW Coefficient Variation 13.9 % (11.7-14.2); Red Blood Cell Count 2.53 M/mm3 (3.80-5.20); White Blood Cell Count 7.21 K/mm3 (4.00-11.30)
[2024-10-21 04:27] LABS: Bun/Creatinine Ratio 40.4 (12.0-20.0); Calcium, Blood 7.4 mg/dL (8.5-10.1); Creatinine, Blood 0.55 mg/dL (0.40-1.00); Magnesium, Blood 2.4 mg/dL (1.6-2.4); Phosphorus, Blood 1.3 mg/dL (2.5-4.9)
[2024-10-21 04:48] LABS: BAND PERCENT MAN 25 % (0-8); BASOPHILS PERCENT MAN 0 % (0-2); EOSINOPHILS PERCENT MAN 0 % (0-6); LYMPHOCYTES % ATYPICAL MANUAL 1 % (0-0); LYMPHOCYTES ABSOLUTE MAN 0.93 K/mm3 (0.84-5.20); LYMPHOCYTES PERCENT MAN 12 % (21-46); MONOCYTES ABSOLUTE MAN 0.28 K/mm3 (0.16-1.47); MONOCYTES PERCENT MAN 4 % (4-13); NEUTROPHILS ABSOLUTE MAN 5.98 K/mm3 (1.96-9.15); SEG NEUTROPHILS PERCENT MAN 58 % (41-73); TOTAL CELLS COUNTED 100
[2024-10-21] MEDS ORDERED: Potassium Phosphate Dibasic 15 MM in Dextrose 5% 250 ML IV ONE (05:30)
--- NOTE | 2024-10-21 06:13 | NUR ---
SHIFT SUMMARY PATIENT INTUBATED AND SEDATED. VENT SETTING AC/PC 18/6/40%. CAREGIVER AT BEDSIDE. PATEINT ON PROPOFOL @ 20 AND precedex @ 1. PATIENT DOES NOT FOLLOW ANY COMMANDS. SBP 110'S AND HR IN THE 70-80'S. PATIENT HAS SQUIRES DRAINING TO GRAVITY. PATIENT HAS RIJ AND A RIGHT WRIST 20G IV. TUBE FEEDING RUNNING AT GOAL OF 30ML WITH A 30 ML FLUSH Q4HR. CALL LIGHT WITHI REACH BUT CAREGIVER COMES OUT TO GET NURSE WHEN NEEDED.
[2024-10-21] MEDS ORDERED: Protein Supplement 30 ML UD PT SCH (09:00)
--- NOTE | 2024-10-21 09:01 | NUR ---
Sedation vacation and SBT from [id number]. Pt exhibited discomfort, with hypertension and tachycardia. Sharepoint Engineer and EFM Physician at bedside. Per Dr. Mota, pt able to close and opens eyes to command. 899 Propofol resumed, ventilator settings adjusted by physician to ACVC 18/400/6+/40%. Physican discussed prognosis with caregiver at bedside as well as pt's friend, Aleena [place], whom caregiver reports is in charge of pt's estate.
[2024-10-21] MEDS ORDERED: FentaNYL Citrate 50 MCG/ML 2 ML Injection IV ONE (09:25)
--- NOTE | 2024-10-21 12:29 | NUR ---
DR. ENGLAND INDICATED THIS MORNING IN PATIENT ROUNDS KAREEM WILL LIKELY NEEDS A TRACH. PT HAS NO FAMILY IMMEDIATE FAMILY OR POA ON FILE. 3 CALLS PLACED TODAY TO FIND OUT WHO WOULD BE THE DECISION MAKER FOR PATIENT. SUMMARY BELOW TO SUMMARIZE PHONE CALLS MADE. DECISION MAKER SUMMARY: PER NEXT OF KIN, JOSE DARRIUS, WHO IS STEPSON TO KAREEM RIZO, STATED "MY DAD IS NOT ABLE TO MAKE DECISIONS AT THIS TIME. KAREEM'S BEST FRIEND SAIDA HAS ALWAYS BEEN DESIGNATED KAREEM'S PERSONAL DNA ANALYST, AND WILL MAKE MEDICAL DECISIONS." JOSE IS UNAWARE IF ANY LEGAL DOCUMENT WAS CREATED TO DESIGNATE SAIDA POA FOR MEDICAL. CALL #1: CALL TO GUILLERMO, TECHNICAL INSTRUCTOR COURSE DEVELOPER FOR [facility] [employer] WHICH IS THE SERVICE KAREEM'S SPOUSE JOSE RIZO IS ON. ACCORDING TO GUILLERMO, THE RN IS MAKING DAILY VISITS TO JOSE DARRIUS. THE PATIENT CHART INDICATED HE WAS VERBALLY NON RESPONSIVE YESTERDAY. HE IS ON SERVICE FOR VASCULAR DEMENTIA. KAREEM WAS LISTED DECISION MAKER FOR JOSE RIZO AND HAD SIGNED HIM UP FOR SERVICES. CALL #2: CALL PLACED TO JOSE RIZO-STEP SON. ACCORDING TO JOSE, KAREEM HAD ALWAYS INDICATED SAIDA, WHO IS KAREEM'S BEST FRIEND WAS DESIGNATED HER PERSONAL DNA ANALYST. JOSE STATED HIS DAD CANNOT MAKE ANY DECISIONS. HE IS NOT DOING WELL TO THE POINT THEY DID NOT THINK HE WOULD LIVE THROUGH THE NIGHT. JOSE IS UNAWARE IF ANY LEGAL DOCUMENT WAS CREATED FOR SAIDA TO BE A PERSONAL DNA ANALYST FOR KAREEM. JOSE INDICATED SAIDA IS DRIVING HERE TODAY. HE GAVE ME SAIDA'S PHONE NUMBER TO CALL [phone]. CALL #3: CALL PLACED TO SAIDA. SAIDA WAS AWARE OF SITUATION WITH KAREEM STATING SHE SPOKE TO A DOCTOR THIS MORNING AND HER UNDERSTANDING IS THAT A DECISION DOES NOT NEED TO BE MADE RIGHT AWAY ABOUT COMING OFF A VENTILATOR AND GETTING A TRACH. SAIDA STATED SHE WAS AT THIS TIME DRIVING DOWN AND WILL COME TO THE HOSPITAL TONIGHT. SAIDA BELIEVES KAREEM DID A LEGAL DOCUMENT TO DESIGNATE HER A PERSONAL DNA ANALYST BUT SHE DOES NOT HAVE A COPY OF THAT DOCUMENTATION WITH HER. SHE BELIEVES IT MAY BE AT KAREEM'S HOME. NOTIFIED MYLA BRUNNER RN OF ABOVE CONVERSATIONS.
[2024-10-21] MEDS ORDERED: FentaNYL Citrate 50 MCG/ML 2 ML Injection IV PRN (14:10)
--- NOTE | 2024-10-21 18:28 | NUR ---
FAILED SBT/SAT THIS MORNING. SOME NON-PURPOSEFUL MOVEMENT AND MOVEMENT TO PAIN INTERMITTENTLY WHILE SEDATED. LOW GRADE FEVER EARLIER THIS MORNING - TMAX 100.3. AFEBRILE THIS AFTERNOON. HR 90S NSR, BP 120S/60S, NO PRESSORS THIS SHIFT. VENTILATOR SETTINGS ADJUSTED PER DR. ENGLAND TO ACVC 18 400 +6 30-40% FIO2, PT RR IN 30S THROUGH SHIFT. VHP INFUSING VIA OGT AT 30ML/HR (GOAL), FWF INCREASED FROM 30 TO 100ML Q4HR FOR ELEVATED SODIUM LEVELS. SQUIRES TO GRAVITY DRAINING CLEAR, PALE YELLOW URINE, HAD DECREASED UOP A FEW HOURS BUT MAINTAINED AROUND 100/HR AVERAGE, DR. ENGLAND NOTIFIED AND CONTINUE TO TREND. 3 LOOSE BM. SOLUCORTEF INFUSION STOPPED. KPHOS REPLACED. PROPOFOL/PRECEDEX INFUSING PER NOV. NS TKO INFUSING PER NOV. CVL TO RIJ. SAFETY, COMFORT, HYGIENE ADDRESSED. CAREGIVER AT BEDSIDE.
[2024-10-22] VITALS (52 sets, daily range): BP systolic 67–164; BP diastolic 41–128
[2024-10-22 04:37] LABS: Hematocrit 28.3 % (33.0-51.0); Hemoglobin 9.3 g/dL (11.5-16.0); Mean Corpuscular HGB 32.1 pg (26.0-34.0); Mean Corpuscular HGB Conc 32.9 g/dL (31.5-36.5); Mean Corpuscular Volume 98 fL (80-100); Mean Platelet Volume 11.6 fL (9.1-12.4); NRBC ABSOLUTE 0.18 K/mm3 (0.00-0.02); NRBC Auto 2.5 /100 WBC (0.0-0.2); Platelet Count 92 K/mm3 (150-400); RDW Coefficient Variation 14.2 % (11.7-14.2); RDW Standard Deviation 51.4 fL (35.1-46.3); White Blood Cell Count 7.17 K/mm3 (4.00-11.30)
[2024-10-22 05:05] LABS: BAND PERCENT MAN 17 % (0-8); BASOPHILS PERCENT MAN 0 % (0-2); EOSINOPHILS ABSOLUTE MAN 0.07 K/mm3 (0.00-0.68); EOSINOPHILS PERCENT MAN 1 % (0-6); LYMPHOCYTES ABSOLUTE MAN 1.43 K/mm3 (0.84-5.20); LYMPHOCYTES PERCENT MAN 20 % (21-46); MONOCYTES ABSOLUTE MAN 0.43 K/mm3 (0.16-1.47); MONOCYTES PERCENT MAN 6 % (4-13); NEUTROPHILS ABSOLUTE MAN 5.23 K/mm3 (1.96-9.15); SEG NEUTROPHILS PERCENT MAN 56 % (41-73); TOTAL CELLS COUNTED 100
[2024-10-22 05:17] LABS: Albumin, Blood 1.8 g/dL (3.4-5.0); Albumin/Globulin Ratio 0.5 (0.8-1.8); Bilirubin, Total 0.4 mg/dL (0.1-1.0); Bun/Creatinine Ratio 37.5 (12.0-20.0); Calcium, Blood 7.7 mg/dL (8.5-10.1); Creatinine, Blood 0.51 mg/dL (0.40-1.00); Globulin, Blood 3.8 g/dL (2.2-4.0); Magnesium, Blood 2.3 mg/dL (1.6-2.4); Phosphorus, Blood 1.4 mg/dL (2.5-4.9); Potassium, Blood 3.2 mmol/L (3.5-5.5); Total Protein, Blood 5.6 g/dL (6.4-8.2)
[2024-10-22] MEDS ORDERED: POTASSIUM PHOSPHATE DIBASIC IV SCH (06:15)
--- NOTE | 2024-10-22 06:30 | NUR ---
SHIFT SUMMARY: Pt has had minimal change this shift. She is tolerating vent settings, copious secretions from tube and mouth, still pink-tinged. NSR on monitor worker, normotensive. TF at goal, hayden draining to gravity with adequate output. Close friend and potentially POA according to caregive arrived last night and visited briefly. Will return today for goals of care conversation.
[2024-10-22] MEDS ORDERED: Potassium Phosphate Dibasic 30 MM in Dextrose 5% 500 ML IV STA (06:34)
[2024-10-22] MEDS ORDERED: Potassium Phosphate Dibasic 15 MM in Dextrose 5% 250 ML IV SCH (12:00)
--- NOTE | 2024-10-22 14:13 | NUR ---
Spiritual Care Visit. Pt. is inteubated and is not responsive. Caregiver and friend are at bedside. Facilitated a lengthy life review with the Caregiver and friend. Listen with interest and pastoral care. This country sales manager encouraged the rn home care that for the 20 years she was able to help the Pt. and Spouse she was already able to extend the Pts. quality of life. Caregiver verbalized gratitude for the encouragement. Will remain available to the Pt. and family.
--- NOTE | 2024-10-22 16:50 | NUR ---
Family were able to find pt's POLST and AD. Her wishes regarding trach or feeding tube are very clear. Both family and friends v/u on this. They plan to give the pt "a few more days" before making any final decision. They are hoping of course the patient will improve, however if she does not, the plan is for terminal withdrawal.
[2024-10-22] MEDS ORDERED: Meropenem 1,000 MG in NS 100 ML IV SCH (18:00)
--- NOTE | 2024-10-22 18:20 | NUR ---
SHIFT SUMMARY PT REMAINS INTUBATED AND SEDATED WITH PROPOFOL AND PRECEDEX, SEE FLOWSHEET AND RT CHARTING FOR VENT SETTINGS. GIVEN BRIEF SED VACATION THIS MORNING, PT OPENING EYES, TRACKING NURSE, AND MOVING R ARM. SHAKES HEAD YES WHEN ASKED IF SHE CAN UNDERSTAND. SEDATION BACK ON FOR VENT COMPLIANCE. TF CONTINUES @ GOAL c Q4HR 200ML H2O FLUSHES. NO BM TODAY. TEMP PROBE SQUIRES DRAINING YELLOW URINE. CAREGIVER AT BEDSIDE FOR MOST OF THE DAY, LIFELONG FRIEND ALSO ARRIVED TODAY. POLST AND ADVANCED DIRECTIVE PROVIDED. PLAN TO WITHDRAW CARE TOMORROW PER PTS PREVIOUS WISHES.
[2024-10-22] MEDS ORDERED: CefTRIAXone Sodium 2,000 MG in NS 100 ML IV SCH (21:00)
[2024-10-23] VITALS (32 sets, daily range): BP systolic 80–126; BP diastolic 47–83
--- NOTE | 2024-10-23 03:32 | NUR ---
I SPOKE WITH DR MANLEY REGARDING THE PATIENT'S COPIOUS ORAL SECRETIONS AND ISSUES WITH MANAGING PAIN. PAIN MEDICATION CAUSING HYPOTENSION, I ASKED FOR ALTERNATIVE OPTIONS. WE DECIDED TO HOLD THE TUBE FEED TO HELP WITH SECRETIONS SINCE THE PATIENT IS GOING TO COMFORT CARE TOMORROW. HE ORDERED A ONE TIME DOSE OF DILAUDID.
[2024-10-23] MEDS ORDERED: HYDROmorphone HCl/Pf 1MG SYR IV ONE (03:45)
[2024-10-23 05:14] LABS: Magnesium, Blood 2.1 mg/dL (1.6-2.4); Phosphorus, Blood 2.1 mg/dL (2.5-4.9)
--- NOTE | 2024-10-23 05:48 | NUR ---
SHIFT SUMMARY: NO SIGNIFICANT CHANGES DURING SHIFT. PT REMAINS INTUBATED AND SEDATED WITH PROPOFOL AND PRECEDEX. HER LUNGS ARE STILL COARSE WITH COPIOUS SECRETIONS. HEART RATE HAS BEEN 90S-115 AND SHE HAS BEEN TRANSIENTLY HYPOTENSIVE USUALLY WITH PAIN MEDICATION. TUBE FEED WAS HELD SINCE APPROXIMATELY 0330 TO HELP WITH SECRETIONS.
[2024-10-23 05:50] LABS: Potassium, Blood 3.7 mmol/L (3.5-5.5)
--- NOTE | 2024-10-23 07:30 | NUR ---
START OF SHIFT THIS NURSE ASSUMED CARE AT APPROXIMATELY 0700. PT REMAINS INTUBATED AND SEDATED. PT HAS NO SIGNS OR SYMPTOMS OF PAIN OR DISTRESS AT THIS TIME. PLAN TO GO COMFORT SOMETIME TODAY PER MD BURDENS NOTE. WILL CONTINUE WITH THE PLAN OF CARE.
[2024-10-23] MEDS ORDERED: Sodium Phosphate Mono/Dibasic 250 MG Tab PT SCH (08:00)
[2024-10-23] MEDS ORDERED: HYDROmorphone HCl/Pf 1MG SYR IV PRN ×2 (08:25→12:55)
[2024-10-23] MEDS ORDERED: Ondansetron HCl 2 MG / ML 2ML Vial IV PRN (12:45)
[2024-10-23] MEDS ORDERED: LORazepam 2 MG/ML 1ML Injection IV PRN ×2 (12:45→13:20)
[2024-10-23] MEDS ORDERED: Acetaminophen 650 MG Supp PR PRN (12:45)
[2024-10-23] MEDS ORDERED: Morphine Sulfate 10 MG/ML 1MLSYR IV PRN (12:50)
[2024-10-23] MEDS ORDERED: Scopolamine Hydrobromide Patch TOP PRN (12:50)
[2024-10-23] MEDS ORDERED: Atropine Sulfate 1% Opth Soln 2ML BTL SL PRN (12:50)
[2024-10-23] MEDS ORDERED: Promethazine HCl 25 MG Supp PR PRN (12:50)
[2024-10-23] MEDS ORDERED: Morphine Sulfate 20 MG/1ML 1 ML Oral Syringe SL PRN (12:50)
[2024-10-23] MEDS ORDERED: Haloperidol Lactate Inj. 5 MG/ML Injection IV PRN (12:50)
--- NOTE | 2024-10-23 13:30 | NUR ---
PT ON COMFORT CARE AND PALLIATIVELY EXTUBATED AT 1325. FAMILY AND FRIENDS PRESENT.
--- NOTE | 2024-10-23 14:35 | NUR ---
Spiritual care visit conducted- EOL Pt is awake and has difficulty breathing. Pt has recently been put on comfort care. Family members are present at bedside and display evidence of emotional stress in the form of tears. Life review conducted. Provided compassionate listening while family and friends reflected upon pt's contributions to their lives and the overall positive impact the pt brought to any situation. Family amd friends display relief while recounting life stories of the pt. Bench Shear Operator mike was also present and provided readings of scripture and a commendation of the . The family verbally expressed their gratitude for our prescence and emotional support. The family chose [facility] for their home and attending nurse was notified. Family and friends showed emotional support for one another and thanked us for the visit.
--- NOTE | 2024-10-23 16:11 | NUR ---
SUMMARY PT TOD 1420. NOTIFIED. RESTRAINTS DC AT TIME OF EXTUBATION. KURT VALDEZ GIVEN TO MEDICAL DECISION MAKER/LIFE LONG FRIEND.
== END 2024-10-23 14:20 | DRG 870 ==
LOC: ER 14:34 → ICUE 16:35
PROVIDERS: Emergency Medicine; Family Medicine; Internal Medicine Critical Care Medicine; Student in an Organized Health Care Education/Training Program; ADMIT Internal Medicine
PROC: 5A1955Z Respiratory Ventilation, Greater than 96 Consecutive Hours (ICD-10-PCS; principal; 2024-10-16)
PROC: 0BH17EZ Insertion of Endotracheal Airway into Trachea, Via Natural or Artificial Opening (ICD-10-PCS; 2024-10-16)
PROC: B548ZZA Ultrasonography of Superior Vena Cava, Guidance (ICD-10-PCS; 2024-10-16)
PROC: 3E04329 Introduction of Other Anti-infective into Central Vein, Percutaneous Approach (ICD-10-PCS; 2024-10-16)
PROC: 3E043XZ Introduction of Vasopressor into Central Vein, Percutaneous Approach (ICD-10-PCS; 2024-10-16)
PROC: 3E033XZ Introduction of Vasopressor into Peripheral Vein, Percutaneous Approach (ICD-10-PCS; 2024-10-16)
PROC: 0DH67UZ Insertion of Feeding Device into Stomach, Via Natural or Artificial Opening (ICD-10-PCS; 2024-10-16)
PROC: 3E03329 Introduction of Other Anti-infective into Peripheral Vein, Percutaneous Approach (ICD-10-PCS; 2024-10-16)
DX: A41.51 Sepsis due to Escherichia coli [E. coli] (principal); J18.9 Pneumonia, unspecified organism; R65.21 Severe sepsis with septic shock; J96.01 Acute respiratory failure with hypoxia; G93.41 Metabolic encephalopathy; J69.0 Pneumonitis due to inhalation of food and vomit; J15.0 Pneumonia due to Klebsiella pneumoniae; S42.215A Unspecified nondisplaced fracture of surgical neck of left humerus, initial encounter for closed fracture; N17.9 Acute kidney failure, unspecified; I50.20 Unspecified systolic (congestive) heart failure; E87.21 Acute metabolic acidosis; Z66 Do not resuscitate; M79.7 Fibromyalgia; Z51.5 Encounter for palliative care; R59.1 Generalized enlarged lymph nodes; I11.0 Hypertensive heart disease with heart failure; D69.6 Thrombocytopenia, unspecified; I35.1 Nonrheumatic aortic (valve) insufficiency; J45.909 Unspecified asthma, uncomplicated; J45.998 Other asthma; M05.79 Rheumatoid arthritis with rheumatoid factor of multiple sites without organ or systems involvement; Z88.7 Allergy status to serum and vaccine; Z88.5 Allergy status to narcotic agent; Z88.8 Allergy status to other drugs, medicaments and biological substances; Z79.891 Long term (current) use of opiate analgesic; Z79.899 Other long term (current) drug therapy; Z90.710 Acquired absence of both cervix and uterus; Z87.81 Personal history of (healed) traumatic fracture; Z79.82 Long term (current) use of aspirin; Z79.52 Long term (current) use of systemic steroids; W18.39XA Other fall on same level, initial encounter
CPT/HCPCS: 0241U; 31500; 36415; 36556; 36600; 51702; 70450; 71045; 71260; 72125; 73030; 80047; 80048; 80053; 80069; 80076; 80320; 82330; 82565; 82803; 82947; 83605; 83735; 83880; 84100; 84132; 84484; 85014; 85025; 85651; 86140; 87040; 87070; 87077; 87186; 87205; 87493; 93005; 93010; 94002; 94003; 94640; 96365-59; 96374; 96375; 99284-25; 99285-25; A9270; C1751; C8929; J0295; J0612; J0696; J1171; J1630; J1650; J1720; J2185; J2250; J2270; J2405; J2470; J2704; J3010; J3370; J3475; J3480; J7030; J7040; J7050; J7060; J7120; Q9957; Q9967